=== PATIENT | male | born 1990 | race Two or more races ===

== ENCOUNTER 2017-04-16 06:33 | Emergency (ER) | payer MEDICAID ==
--- NOTE | ~2017-04-16 | CR181 ---
[facility] A Service of [facility] & [facility] RADIOLOGY TEXT RESULTS PATIENT: JOHNNY BENTON LOCATION: [facility] : [birth year] UNIT #: [id number] AGE: [address]: Roberto Nino MD SEX: M ORDER DR: [id number] [facility] [address] [place], [place] [address] [id number] MR#: [id number] Acc #: [id number] NAME: JOHNNY BENTON : 1990 SEX: M STUDY DATE/TIME: 04/16/2017 7:47 UNIT: [facility] ROOM: STUDY DESCRIPTION: CR Lumbar Spine 2 or 3 Views Attending Physician: Roberto Nino M.D. Ordering Physician: Roberto Nino M.D. Primary Care Physician: No Primary Care Physician MEDICAL IMAGING REPORT This report is preliminary unless electronic signature is present EXAM Lumbar spine 04/16/2017. INDICATIONS Low back pain after boxing match last Friday. FINDINGS AP and lateral projections of the lumbar segment show good mineralization of both anterior and posterior elements. They are all anatomically normal without indication of fracture, dislocation, or malignant change of a sclerotic or lytic type. There is no congenital defect noted. The sacroiliac joints are normal. IMPRESSION Normal lumbar spine. Dictated by... Darion Feliciano Jr., M.D. THIS IS AN ELECTRONICALLY VERIFIED REPORT Darion Feliciano Jr., M.D. at 04/16/2017 5:03 PM VLAD/nolberto TD: 04/16/2017 12:38 JOB #: [id number] MEDICAL IMAGING REPORT Page 1 of 1 COPY
== END 2017-04-16 09:10 | disposition home or self-care (01) ==
LOC: CED 06:33
DX: S39.012A Strain of muscle, fascia and tendon of lower back, initial encounter (principal); F17.200 Nicotine dependence, unspecified, uncomplicated; Z88.8 Allergy status to other drugs, medicaments and biological substances; X50.9XXA Other and unspecified overexertion or strenuous movements or postures, initial encounter; Y92.9 Unspecified place or not applicable
CPT/HCPCS: 72100; 96372; 96374; 99283; J1885